=== PATIENT | male | born 1965 | race African-American/Black ===

== ENCOUNTER 2022-12-17 05:58 | Emergency (ER) | payer OTHER ==
--- OUTSIDE RECORDS SUMMARY | 2022-12-17 06:01 | XMS REPORT | Continuity of Care Document ---
:1965 Author Organization [facility] t Address [address] [facility] [address] [place] [id number] Care Team Providers Name Role Phone Katty_S Attending Clinician Unavailable Chano Alaniz Attending Clinician [phone] Borisin_S Admitting Clinician Unavailable Payers Payer Name Policy Type Policy Number Effective Date Expiration Date [facility] [id number] [facility] [id number] 2011 00:00:00 [facility] [id number] 2019 00:00:00 Problems Condition Condition Condition Status Onset Resolution Last Treating Co mments Source Name Details Category Date Date Treatment Clinician Date Benign Benign Problem Active [place] prostatic Prostatic 1-10 [facility] o hyperplasi Hyperplasi 00:00: Ur ology a a 00 Prostate Prostate Problem Active [place] specific Specific 1-10 [facility] antigen Antigen 00:00: Urology above above 00 reference Reference range Range Hypogonadi Hypogonadi Problem Active [place] sm sm 1-07 [facility] 00:00: Urology 00 Allergies, Adverse Reactions, Alerts This patient has no known allergies or adverse reactions. Social History Smoking Status Start Date Stop Date Source Never Smoker [facility] Medications Ordered Filled Start Stop Current Ordering Indication Dosage Frequency Signature Comments Components Source Medication Medication Date Date Medication? Clinician (SIG) Name Name anastrozole anastrozole No anastrozol [facility] 1 mg tablet 1 mg tablet e 1 mg [facility] TAKE 1 TAKE 1 tablet Urology TABLET BY TABLET BY TAKE 1 MOUTH ONE MOUTH ONE TABLET BY TIME PER TIME PER MOUTH ONE WEEK WEEK TIME PER WEEK carvedilol carvedilol No carvedilol [place] 12.5 mg 12.5 mg 12.5 mg [facility] tablet TAKE tablet TAKE tablet Urology 1 TABLET BY 1 TABLET BY TAKE 1 MOUTH EVERY MOUTH EVERY TABLET BY DAY DAY MOUTH EVERY DAY diltiazem diltiazem No diltiazem [place] ER 300 mg ER 300 mg ER 300 mg [facility] capsule,24 capsule,24 capsule,24 Urology hr,extended hr,extended hr,extende release release d release TAKE 1 TAKE 1 TAKE 1 CAPSULE BY CAPSULE BY CAPSULE BY MOUTH EVERY MOUTH EVERY MOUTH DAY DAY EVERY DAY fenofibrate fenofibrate No fenofibrat [facility] 54 mg 54 mg e 54 mg [facility] tablet TAKE tablet TAKE tablet Urology 1 TABLET BY 1 TABLET BY TAKE 1 MOUTH EVERY MOUTH EVERY TABLET BY DAY DAY MOUTH EVERY DAY meloxicam meloxicam No meloxicam [facility] 15 mg 15 mg 15 mg [facility] tablet TAKE tablet TAKE tablet Urology 1 TABLET BY 1 TABLET BY TAKE 1 MOUTH EVERY MOUTH EVERY TABLET BY DAY START DAY START MOUTH AFTER AFTER EVERY DAY MEDROL DOSE MEDROL DOSE START PACK PACK AFTER MEDROL DOSE PACK rosuvastati rosuvastati No rosuvastat [place] n 10 mg n 10 mg in 10 mg [facility] tablet TAKE tablet TAKE tablet Urology 1 TABLET BY 1 TABLET BY TAKE 1 MOUTH EVERY MOUTH EVERY TABLET BY DAY DAY MOUTH EVERY DAY testosteron testosteron No .5mL Q1W testostero [place] e cypionate e cypionate ne M etro 200 mg/mL 200 mg/mL cypionate Urology intramuscul intramuscul 200 mg/mL ar oil ar oil intramuscu Inject 0.5 Inject 0.5 lar oil mL every mL every Inject 0.5 week by week by mL every intramuscul intramuscul week by ar route. ar route. intramuscu lar route. anastrozole anastrozole No 1 Q1W anastrozol [facility] 1 mg tablet 1 mg tablet e 1 mg [facility] Take 1 Take 1 tablet Urology tablet tablet Take 1 every week every week tablet by oral by oral every week route. route. by oral route. carvedilol carvedilol No carvedilol [facility] 12.5 mg 12.5 mg 12.5 mg [facility] tablet tablet tablet Urology diltiazem diltiazem No diltiazem [place] ER 300 mg ER 300 mg ER 300 mg [facility] capsule,24 capsule,24 capsule,24 Urology hr,extended hr,extended hr,extende release release d release fenofibrate fenofibrate No fenofibrat [place] 54 mg 54 mg e 54 mg [facility] tablet tablet tablet Urology testosteron testosteron No .5mL Q1W testostero Resendez e cypionate e cypionate ne M etro 200 mg/mL 200 mg/mL cypionate Urology intramuscul intramuscul 200 mg/mL ar oil ar oil intramuscu Inject 0.5 Inject 0.5 lar oil mL every mL every Inject 0.5 week by week by mL every intramuscul intramuscul week by ar route. ar route. intramuscu lar route. anastrozole anastrozole No anastrozol [facility] 1 mg tablet 1 mg tablet e 1 mg [facility] TAKE 1 TAKE 1 tablet Urology TABLET BY TABLET BY TAKE 1 MOUTH EVERY MOUTH EVERY TABLET BY WEEK WEEK MOUTH EVERY WEEK carvedilol carvedilol No carvedilol [facility] 12.5 mg 12.5 mg 12.5 mg [facility] tablet TAKE tablet TAKE tablet Urology 1 TABLET BY 1 TABLET BY TAKE 1 MOUTH EVERY MOUTH EVERY TABLET BY DAY IN THE DAY IN THE MOUTH MORNING MORNING EVERY DAY IN THE MORNING diltiazem diltiazem No diltiazem [place] ER 300 mg ER 300 mg ER 300 mg [facility] capsule,24 capsule,24 capsule,24 Urology hr,extended hr,extended hr,extende release release d release TAKE 1 TAKE 1 TAKE 1 CAPSULE BY CAPSULE BY CAPSULE BY MOUTH EVERY MOUTH EVERY MOUTH DAY DAY EVERY DAY fenofibrate fenofibrate No fenofibrat [facility] 54 mg 54 mg e 54 mg [facility] tablet TAKE tablet TAKE tablet Urology 1 TABLET BY 1 TABLET BY TAKE 1 MOUTH EVERY MOUTH EVERY TABLET BY DAY DAY MOUTH EVERY DAY testosteron testosteron No .5mL Q1W testostero Mal e cypionate e cypionate ne M etro 200 mg/mL 200 mg/mL cypionate Urology intramuscul intramuscul 200 mg/mL ar oil ar oil intramuscu Inject 0.5 Inject 0.5 lar oil mL every mL every Inject 0.5 week by week by mL every intramuscul intramuscul week by ar route. ar route. intramuscu lar route. anastrozole anastrozole No anastrozol [facility] 1 mg tablet 1 mg tablet e 1 mg [facility] TAKE 1 TAKE 1 tablet Urology TABLET BY TABLET BY TAKE 1 MOUTH ONE MOUTH ONE TABLET BY TIME PER TIME PER MOUTH ONE WEEK WEEK TIME PER WEEK benzonatate benzonatate No benzonatat [facility] 100 mg 100 mg e 100 mg [facility] capsule capsule capsule Urolog y TAKE 1-2 TAKE 1-2 TAKE 1-2 CAPSULES CAPSULES CAPSULES EVERY BY EVERY BY EVERY BY MOUTH 8 MOUTH 8 MOUTH 8 HOURS HOURS HOURS DIRECTED. DIRECTED. DIRECTED. bromphenira bromphenira No bromphenir [place] mine-pseudo mine-pseudo amine-pseu [facility] ephedrine-D ephedrine-D doephedrin Urology M 2 mg-30 M 2 mg-30 e-DM 2 mg-10 mg/5 mg-10 mg/5 mg-30 mL oral mL oral mg-10 mg/5 syrup TAKE syrup TAKE mL oral 10 ML BY 10 ML BY syrup TAKE MOUTH EVERY MOUTH EVERY 10 ML BY 4 HOURS 4 HOURS MOUTH NEEDED NEEDED EVERY 4 HOURS NEEDED carvedilol carvedilol No carvedilol [place] 12.5 mg 12.5 mg 12.5 mg [facility] tablet TAKE tablet TAKE tablet Urology 1 TABLET BY 1 TABLET BY TAKE 1 MOUTH EVERY MOUTH EVERY TABLET BY DAY DAY MOUTH EVERY DAY diltiazem diltiazem No diltiazem [place] ER 300 mg ER 300 mg ER 300 mg [facility] capsule,24 capsule,24 capsule,24 Urology hr,extended hr,extended hr,extende release release d release TAKE 1 TAKE 1 TAKE 1 CAPSULE BY CAPSULE BY CAPSULE BY MOUTH EVERY MOUTH EVERY MOUTH DAY DAY EVERY DAY fenofibrate fenofibrate No fenofibrat [place] 54 mg 54 mg e 54 mg [facility] tablet TAKE tablet TAKE tablet Urology 1 TABLET BY 1 TABLET BY TAKE 1 MOUTH EVERY MOUTH EVERY TABLET BY DAY DAY MOUTH EVERY DAY hydrocodone hydrocodone No hydrocodon [facility] 7.5 7.5 e 7.5 [facility] mg-acetamin mg-acetamin mg-acetami Urology ophen 325 ophen 325 nophen 325 mg tablet mg tablet mg tablet ibuprofen ibuprofen No ibuprofen [facility] 800 mg 800 mg 800 mg [facility] tablet tablet tablet Urology rosuvastati rosuvastati No rosuvastat [place] n 10 mg n 10 mg in 10 mg [facility] tablet TAKE tablet TAKE tablet Urology 1 TABLET BY 1 TABLET BY TAKE 1 MOUTH EVERY MOUTH EVERY TABLET BY DAY DAY MOUTH EVERY DAY testosteron testosteron No .5mL Q1W testostero [place] e cypionate e cypionate ne M etro 200 mg/mL 200 mg/mL cypionate Urology intramuscul intramuscul 200 mg/mL ar oil ar oil intramuscu Inject 0.5 Inject 0.5 lar oil mL every mL every Inject 0.5 week by week by mL every intramuscul intramuscul week by ar route. ar route. intramuscu lar route. Immunizations Ordered Immunization Filled Immunization Date Status Commen ts Source Name Name COVID-19, mRNA, COVID-19, mRNA, 2020-07-05 Completed [place] [facility] LNP-S, PF, 100 LNP-S, PF, 100 00:00:00 Urolog y mcg/0.5 mL dose mcg/0.5 mL dose (Moderna) (Moderna) COVID-19, mRNA, COVID-19, mRNA, 2020-07-05 Completed [place] [facility] LNP-S, PF, 100 LNP-S, PF, 100 00:00:00 Urolog y mcg/0.5 mL dose mcg/0.5 mL dose (Moderna) (Moderna) COVID-19, mRNA, COVID-19, mRNA, 2020-07-05 Completed [place] [facility] LNP-S, PF, 100 LNP-S, PF, 100 00:00:00 Urolog y mcg/0.5 mL dose mcg/0.5 mL dose (Moderna) (Moderna) COVID-19, mRNA, COVID-19, mRNA, 2020-07-05 Completed [place] [facility] LNP-S, PF, 100 LNP-S, PF, 100 00:00:00 Urolog y mcg/0.5 mL dose mcg/0.5 mL dose (Moderna) (Moderna) COVID-19, mRNA, COVID-19, mRNA, 2020-06-07 Completed [place] [facility] LNP-S, PF, 100 LNP-S, PF, 100 00:00:00 Urolog y mcg/0.5 mL dose mcg/0.5 mL dose (Moderna) (Moderna) COVID-19, mRNA, COVID-19, mRNA, 2020-06-07 Completed [place] [facility] LNP-S, PF, 100 LNP-S, PF, 100 00:00:00 Urolog y mcg/0.5 mL dose mcg/0.5 mL dose (Moderna) (Moderna) COVID-19, mRNA, COVID-19, mRNA, 2020-06-07 Completed [place] [facility] LNP-S, PF, 100 LNP-S, PF, 100 00:00:00 Urolog y mcg/0.5 mL dose mcg/0.5 mL dose (Moderna) (Moderna) COVID-19, mRNA, COVID-19, mRNA, 2020-06-07 Completed [place] [facility] LNP-S, PF, 100 LNP-S, PF, 100 00:00:00 Urolog y mcg/0.5 mL dose mcg/0.5 mL dose (Moderna) (Moderna) Vital Signs Vital Name Observation Time Observation Value Comments Source Height 2022-10-17 00:00:00 66 [in_i] [facility] BMI (Body Mass 2022-10-17 00:00:00 30.2 kg/m2 [place] [facility] Index) Urology Body Weight 2022-10-17 00:00:00 187 [lb_av] [facility] Height 2022-04-18 00:00:00 66 [in_i] [facility] BMI (Body Mass 2022-04-18 00:00:00 30 kg/m2 [place] [facility] Index) Urology Body Weight 2022-04-18 00:00:00 186 [lb_av] [facility] Height 2021-10-15 00:00:00 66 [in_i] [facility] BMI (Body Mass 2021-10-15 00:00:00 30.2 kg/m2 [place] [facility] Index) Urology Body Weight 2021-10-15 00:00:00 187 [lb_av] [facility] Height 2021-04-16 00:00:00 66 [in_i] [facility] BMI (Body Mass 2021-04-16 00:00:00 30.5 kg/m2 [place] [facility] Index) Urology Body Weight 2021-04-16 00:00:00 189 [lb_av] [facility] Procedures Procedure Date / Time Performed Performing Clinician [facility] e Diagnostic Colonoscopy 2018-04-07 00:00:00 [place] [facility] Plan of Care Planned Activity Planned Date Details Comments Source Diagnostic Test 2022-10-17 testosterone, total, [place] [facility] Pending 00:00:00 serum [code = Urology testosterone, total, serum] Diagnostic Test 2022-10-17 estradiol, serum [place] [facility] Pending 00:00:00 [code = estradiol, Urology serum] Diagnostic Test 2022-10-17 PSA, total + free, [place] [facility] Pending 00:00:00 serum or plasma Urology [code = PSA, total + free, serum or plasma] Diagnostic Test 2022-10-17 hemoglobin + [place] [facility] o Pending 00:00:00 hematocrit, blood Urology [code = hemoglobin + hematocrit, blood] Diagnostic Test 2022-10-17 urinalysis, dipstick [place] [facility] Pending 00:00:00 [code = urinalysis, Urology dipstick] Future Appointment 2023-04-19 Chano Alaniz, [address] [facility] 00:00:[address]; , [place] [address] Encounters Start End Encounter Admission Attending Care Care Encounter Source Date/Time Date/Time Type Type Clinicians Facility Department ID 2022-10-17 2022-10-17 Outpatient Lapin_S [facility] [id number] [place] 00:00:00 00:00:00 [id number] [facility] 2022-10-17 2022-10-17 Outpatient Lapin_S [facility] [id number] [place] 00:00:00 00:00:00 [id number] [facility] 2022-10-17 2022-10-17 Chano [facility] [place] - [id number] Chris gonzales 00:00:00 00:00:00 Savanna Alaniz MD: ro [facility] [address] Urology [place] [facility] [address] [facility], [place] [address] , Ph. 2022-04-18 2022-04-18 Outpatient [facility] [id number] [place] 00:00:00 00:00:00 [id number] [facility] 2022-04-18 2022-04-18 Outpatient Lapin_S [facility] [id number] [place] 00:00:00 00:00:00 [id number] [facility] 2022-04-18 2022-04-18 [facility] [place] - [id number] [facility] 00:00:00 Savanna Alaniz MD: [facility] [facility] [address], [place] [address] , Ph. 2021-10-30 2021-10-30 Outpatient Lapin_S [facility] [id number] [place] 12:54:00 12:54:00 [facility] 2021-10-16 2021-10-16 Outpatient Lapin_S [facility] [id number] [place] 10:02:00 10:02:00 [facility] 2021-10-15 2021-10-15 Outpatient Lapin_S [facility] [id number] [place] 11:26:00 11:26:00 [id number] [facility] 2021-10-15 2021-10-15 Outpatient Lapin, [facility] [id number] 00:00:00 00:00:00 Chano [id number] Savanna [id number] 2021-10-15 2021-10-15 [facility] [place] - [id number] [facility] 00:00:00 00:00:00 Savanna Alaniz MD: [facility] [facility] [address], [place] [address] , Ph. 2021-09-10 2021-09-10 Outpatient Lapin_S [facility] U [id number] [place] 04:53:00 04:53:00 [facility] 2021-04-16 2021-04-16 Outpatient Lapin_S [facility] [id number] [place] 11:16:00 11:16:00 [facility] 2021-04-16 2021-04-16 Chano [facility] [place] [facility] [id number] [facility] 00:00:00 Savanna Alaniz MD: [facility] [facility] [address], [place] [address] , Ph. 2021-04-16 2021-04-16 Outpatient Lapin, [facility] [id number] 00:00:00 00:00:00 Chano [id number] Savanna [id number] 2021-04-10 2021-04-10 Outpatient Lapin_S [facility] [id number] [place] 11:59:00 11:59:00 [facility] 2021-03-26 2021-03-26 Outpatient Lapin_S [facility] [id number] [place] 05:53:00 05:53:00 [id number] [facility] Results This patient has no known results.
[2022-12-17 06:54] LABS: Absolute Lymphocytes (CBC) 1.2 K/uL (0.7-4.9); Lymphocytes % 20.4 % (15.3-44.8); MCV 83.4 fL (80-100); MPV 8.1 fL (7.6-11.3); Platelets 249 thou/uL (152-406); RBC Red Blood Cell Count 5.03 M/uL (4.33-5.43)
--- NOTE | 2022-12-17 07:02 | ER ---
Nurse's Notes [facility] Name: Watson Martines Age: 57 yrs Sex: Male : 1965 Arrival Date: 12/17/2022 Time: 05:58 Bed 6 Private MD: Diagnosis: Acute urinary retention, bladder outlet obstruction, prostatomegaly Presentation: 12/17 06:13 Chief complaint: Patient states: "I haven't been able to pee since 9 am yesterday as6 morning". Coronavirus screen: At this time, the client does not indicate any symptoms associated with coronavirus-19. Ebola Screen: No symptoms or risks identified at this time. Initial Sepsis Screen: Does the patient meet any 2 criteria? No. Patient's initial sepsis screen is negative. Does the patient have a suspected source of infection? No. Patient's initial sepsis screen is negative. Risk Assessment: Do you want to hurt yourself or someone else? Patient reports no desire to harm self or others. Onset of symptoms was December 16, 2022 at 09:00. 06:13 Method Of Arrival: Wheelchair as6 06:13 Acuity: VALERIA 3 as6 Historical: - Allergies: 06:13 No Known Allergies; as6 - Home Meds: 06:13 None [Active]; as6 - PMHx: 06:13 None; as6 - PSHx: 06:13 elbow; as6 - Immunization history:: Client reports receiving the 2nd dose of the Covid vaccine, moderna. - Social history:: Smoking status: Patient denies any tobacco usage or history of. - Family history:: not pertinent. Vital Signs: 06:10 BP 159 / 100; Pulse 92; Resp 18 S; Temp 97.9(TE); Pulse Ox 100% on R/A; Weight 86.18 kg as6 (R); Height 5 ft. 6 in. (R); Pain 10/10; 06:10 Body Mass Index 30.67 (86.18 kg, 167.64 cm) as6 06:10 Pain Scale: Adult as6 ED Course: 06:01 Patient arrived in ED. ag3 06:06 Roberto Gonzalez MD is Attending Physician. sp4 06:08 Otis Duran, FELIPE is Primary Nurse. bp 06:10 Arm band placed on. as6 06:16 Triage completed. as6 06:49 CMP Sent. jb4 06:49 Urinalysis W/Microscopic Sent. jb4 06:50 CBC with Diff Sent. jb4 06:58 Glen Ruth MD is Referral Physician. sp4 Administered Medications: 06:53 Not Given (Patient Refused): Acetaminophen-Codeine PO (300 mg-30 mg) 2 tabs PO once; jb4 RASS on ADMIN: Combtv4, Very Agttd3, Agttd2, Rstlss1, AlertClm0, Drwsy-1, Lt Sdtn-2, Mod Sdtn-3, Dp Sdtn-4, UnArsble-5 06:57 Drug: Flomax PO 0.4 mg Route: PO; jb4 Outcome: 07:01 Discharge ordered by . sp4 07:51 Patient left the ED. Signatures: Dawna Magaña RN RN Maynor Lawton RN RN jb4 Otis Duran, RN Venita Coleman ag3 Wayne Suh, FELIPE WANG as6 Roberto Gonzalez MD MD sp4
--- NOTE | 2022-12-17 07:02 | EDPHYS ---
Physician Documentation [facility] Name: Watson Martines Age: 57 yrs Sex: Male : 1965 Arrival Date: 12/17/2022 Time: 05:58 Bed 6 Private MD: ED Physician Roberto Gonzalez HPI: 12/17 06:06 This 57 yrs old Black Male presents to ER via Unassigned with complaints of Urinary sp4 Retention. 06:06 . sp4 06:36 57-year-old male presents with acute urinary outflow obstruction and urinary retention sp4 starting at 9 AM yesterday morning. Patient reported sporadic small-volume urinations but this morning he developed moderate to severe pelvic pain, urinary bladder distention and presented here. Patient denied any similar symptoms in the past. [facility] and prescribed Pyridium and Macrobid.. Historical: - Allergies: 06:13 No Known Allergies; as6 - Home Meds: 06:13 None [Active]; as6 - PMHx: 06:13 None; as6 - PSHx: 06:13 elbow; as6 - Immunization history:: Client reports receiving the 2nd dose of the Covid vaccine, moderna. - Social history:: Smoking status: Patient denies any tobacco usage or history of. - Family history:: not pertinent. ROS: 06:36 Constitutional: Negative for fever, chills, and weight loss, Eyes: Negative for injury, sp4 pain, redness, and discharge, : Positive urinary bladder pain, urinary bladder distention, positive acute urinary retention 06:36 All other systems are negative. Exam: 06:36 Constitutional: This is a well developed, well nourished patient who is awake, alert, sp4 mild distress secondary to pain Head/Face: Normocephalic, atraumatic. Eyes: Pupils equal round and reactive to light, extra-ocular motions intact. Lids and lashes normal. Conjunctiva and sclera are not injected. Cornea within normal limits. Periorbital areas with no swelling, redness, or edema. ENT: Nares patent. No nasal discharge, no septal abnormalities noted. Tympanic membranes are normal and external auditory canals are clear. Oropharynx with no redness, swelling, or masses, exudates, or evidence of obstruction, uvula midline. Mucous membranes moist. Neck: Trachea midline, no thyromegaly or masses palpated, and no cervical lymphadenopathy. Supple, full range of motion without nuchal rigidity, or vertebral point tenderness. Chest/axilla: Normal chest wall appearance and motion. Nontender with no deformity. No lesions are appreciated. Cardiovascular: Regular rate and rhythm with a normal S1 and S2. No gallops, murmurs, or rubs. Normal PMI, no JVD. No pulse deficits. Respiratory: Lungs have equal breath sounds bilaterally, clear to auscultation and percussion. No rales, rhonchi or wheezes noted. No increased work of breathing, no retractions or nasal flaring. Abdomen/GI: Soft, non-tender, with normal bowel sounds. No distension or tympany. No guarding or rebound. No evidence of tenderness throughout. Back: No spinal tenderness. No costovertebral tenderness. Skin: Warm, dry with normal turgor. Normal color with no rashes, no lesions, and no evidence of cellulitis. MS/ Extremity: Pulses equal, no cyanosis. Neurovascular intact. Full, normal range of motion. Neuro: Awake and alert, GCS 15, oriented to person, place, time, and situation. Cranial nerves II-XII grossly intact. Motor strength 5/5 in all extremities. Sensory grossly intact. Psych: Awake, alert, with orientation to person, place and time. Behavior, mood, and affect are within normal limits Vital Signs: 06:10 BP 159 / 100; Pulse 92; Resp 18 S; Temp 97.9(TE); Pulse Ox 100% on R/A; Weight 86.18 kg as6 (R); Height 5 ft. 6 in. (R); Pain 10/10; 06:10 Body Mass Index 30.67 (86.18 kg, 167.64 cm) as6 06:10 Pain Scale: Adult as6 Procedures: 06:36 Rodriguez cath inserted by myself - Urine output = 1200 ml's. Rodriguez cath flushed with 10 ml sp4 normal saline. Patient tolerated well. Rodriguez catheter inserted by drained 1.2 L, Rodriguez catheter left in place and leg bag was attached. MDM: 06:31 Patient medically screened. sp4 06:36 Differential Diagnosis altered mental status, sepsis, flu. Data reviewed: vital signs, sp4 nurses notes, lab test result(s). Consideration of Admission/Observation Escalation of care including admission/observation considered. ED course: Patient felt much improved after the urinary bladder was drained.. . 12/17 06:07 Order name: Urinalysis W/Microscopic sp4 12/17 06:27 Order name: CMP sp4 12/17 06:27 Order name: CBC with Diff; Complete Time: 06:58 sp4 12/17 06:07 Order name: Rodriguez; Complete Time: 06:49 sp4 Administered Medications: 06:53 Not Given (Patient Refused): Acetaminophen-Codeine PO (300 mg-30 mg) 2 tabs PO once; jb4 RASS on ADMIN: Combtv4, Very Agttd3, Agttd2, Rstlss1, AlertClm0, Drwsy-1, Lt Sdtn-2, Mod Sdtn-3, Dp Sdtn-4, UnArsble-5 06:57 Drug: Flomax PO 0.4 mg Route: PO; jb4 Disposition Summary: 12/17/22 07:01 Discharge Ordered Location: Home sp4 Problem: new sp4 Symptoms: have improved sp4 Condition: Stable sp4 Diagnosis - Acute urinary retention, bladder outlet obstruction, prostatomegaly sp4 Followup: sp4 - With: Glen Ruth MD - When: 10 - 14 days - Reason: Recheck today's complaints Discharge Instructions: - Discharge Summary Sheet sp4 - Acute Urinary Retention, Male, [id number] sp4 Forms: - Patient Portal Instructions sp4 Prescriptions: - Flomax 0.4 mg Oral capsule - take 1 capsule by ORAL route daily; 30 capsule; Refills: 0, Product Selection sp4 Permitted Signatures: Dispatcher [employer] Maynor Almonte RN RN jb4 Wayne Suh RN RN as6 Roberto Gonzalez MD MD sp4
[2022-12-17] MEDS ORDERED: TAMSULOSIN 0.4 MG SR CAP ONE (07:05)
[2022-12-17 07:10] LABS: Albumin 3.7 g/dL (3.4-5.0); Bilirubin Total 0.4 mg/dL (0.2-1.0); Potassium 3.5 mEq/L (3.5-5.1); Protein, Total 7.4 g/dL (6.4-8.2)
[2022-12-17 07:28] LABS: Specific Gravity 1.023 (1.005-1.030); Urine Bacteria <20 /HPF (<20); Urine Bilirubin 1+ (Negative); Urine Blood 3+ (Negative); Urine Clarity Turbid (Clear); Urine Color Dark-Yellow (Yellow); Urine Glucose NEGATIVE (Negative); Urine Mucus Slight /HPF (None Seen); Urine Protein NEGATIVE (Negative); Urine RBC >50 /HPF (None Seen); Urine Urobilinogen 1+ (Normal); Urine pH 6.5 (5.0-7.0)
[2022-12-17 07:55] VITALS: BP 159/100; TEMP 97.9; O2SAT 100
== END 2022-12-17 07:51 | disposition home or self-care (01) ==
LOC: ER 05:58
DX: N32.0 Bladder-neck obstruction (principal); N40.0 Benign prostatic hyperplasia without lower urinary tract symptoms
CPT/HCPCS: 36415; 51702; 80053; 81001; 85025; 99283

== ENCOUNTER 2023-07-14 09:01 | Emergency (ER) | payer OTHER ==
--- OUTSIDE RECORDS SUMMARY | 2023-07-14 09:05 | XMS REPORT | Continuity of Care Document ---
Author Name Unknown Address [address] [place] [address] [address] [place] [address] [facility] Address [address] [facility] [address] [place] [address] Care Team Providers Care Timber Hewer Name Role Phone Thompson Attending Clinician Unavailable Chano Alaniz Attending Clinician [phone] Thompson Admitting Clinician Unavailable Payers Payer Name Policy Type Policy Number Effective Date Expirati on Date Source [facility] [id number] [facility] [id number] 2011 00:00:00 [facility] [id number] [facility] [id number] 2019 00:00:00 Problems Condition Name Condition Details Condition Category Status Onset Date Resolution Date Last Treatment Date Treating Clinician Comments Source Retention of urine Retention of Urine Problem Active 12-17 00:00: 00 [facility] Benign prostatic hyperplasi a Benign Prostatic Hyperplasi a Problem Active 04-16 00:00: 00 [facility] Prostate specific antigen above reference range Prostate Specific Antigen above Reference Range Problem Active 04-16 00:00: 00 [facility] Hypogonadi sm Hypogonadi sm Problem Active 04-13 00:00: 00 [facility] Social History Smoking Status Start Date Stop Date Source Never Smoker [facility] Medications Ordered Medication Name Filled Medication Name Start Date Stop Date Current Medication? Ordering Clinician Indication Dosage Frequency Signature (SIG) Comments Components Source anastrozole 1 mg tablet TAKE 1 TABLET BY MOUTH ONE TIME PER WEEK anastrozole 1 mg tablet TAKE 1 TABLET BY MOUTH ONE TIME PER WEEK No anastrozol e 1 mg tablet TAKE 1 TABLET BY MOUTH ONE TIME PER WEEK [facility] carvedilol 12.5 mg tablet TAKE 1 TABLET BY MOUTH EVERY DAY carvedilol 12.5 mg tablet TAKE 1 TABLET BY MOUTH EVERY DAY No carvedilol 12.5 mg tablet TAKE 1 TABLET BY MOUTH EVERY DAY [facility] diltiazem ER 300 mg capsule,24 hr,extended release TAKE 1 CAPSULE BY MOUTH EVERY DAY diltiazem ER 300 mg capsule,24 hr,extended release TAKE 1 CAPSULE BY MOUTH EVERY DAY No diltiazem ER 300 mg capsule,24 hr,extende d release TAKE 1 CAPSULE BY MOUTH EVERY DAY [facility] fenofibrate 54 mg tablet TAKE 1 TABLET BY MOUTH EVERY DAY fenofibrate 54 mg tablet TAKE 1 TABLET BY MOUTH EVERY DAY No fenofibrat e 54 mg tablet TAKE 1 TABLET BY MOUTH EVERY DAY [facility] meloxicam 15 mg tablet TAKE 1 TABLET BY MOUTH EVERY DAY START AFTER MEDROL DOSE PACK meloxicam 15 mg tablet TAKE 1 TABLET BY MOUTH EVERY DAY START AFTER MEDROL DOSE PACK No meloxicam 15 mg tablet TAKE 1 TABLET BY MOUTH EVERY DAY START AFTER MEDROL DOSE PACK [facility] rosuvastati n 10 mg tablet TAKE 1 TABLET BY MOUTH EVERY DAY rosuvastati n 10 mg tablet TAKE 1 TABLET BY MOUTH EVERY DAY No rosuvastat in 10 mg tablet TAKE 1 TABLET BY MOUTH EVERY DAY [facility] testosteron e cypionate 200 mg/mL intramuscul ar oil Inject 0.5 mL every week by intramuscul ar route. testosteron e cypionate 200 mg/mL intramuscul ar oil Inject 0.5 mL every week by intramuscul ar route. No .5mL Q1W testostero ne cypionate 200 mg/mL intramuscu lar oil Inject 0.5 mL every week by intramuscu lar route. [facility] alfuzosin ER 10 mg tablet,exte nded release 24 hr Take 1 tablet every day by oral route for 90 days. alfuzosin ER 10 mg tablet,exte nded release 24 hr Take 1 tablet every day by oral route for 90 days. No 1 Q1D alfuzosin ER 10 mg tablet,ext ended release 24 hr Take 1 tablet every day by oral route for 90 days. [facility] anastrozole 1 mg tablet TAKE 1 TABLET BY MOUTH ONE TIME PER WEEK anastrozole 1 mg tablet TAKE 1 TABLET BY MOUTH ONE TIME PER WEEK No anastrozol e 1 mg tablet TAKE 1 TABLET BY MOUTH ONE TIME PER WEEK [facility] carvedilol 12.5 mg tablet TAKE 1 TABLET BY MOUTH EVERY DAY carvedilol 12.5 mg tablet TAKE 1 TABLET BY MOUTH EVERY DAY No carvedilol 12.5 mg tablet TAKE 1 TABLET BY MOUTH EVERY DAY [facility] diltiazem ER 180 mg capsule,24 hr,extended release TAKE 1 CAPSULE BY MOUTH EVERY DAY diltiazem ER 180 mg capsule,24 hr,extended release TAKE 1 CAPSULE BY MOUTH EVERY DAY No diltiazem ER 180 mg capsule,24 hr,extende d release TAKE 1 CAPSULE BY MOUTH EVERY DAY [facility] diltiazem ER 300 mg capsule,24 hr,extended release TAKE 1 CAPSULE BY MOUTH EVERY DAY diltiazem ER 300 mg capsule,24 hr,extended release TAKE 1 CAPSULE BY MOUTH EVERY DAY No diltiazem ER 300 mg capsule,24 hr,extende d release TAKE 1 CAPSULE BY MOUTH EVERY DAY [facility] fenofibrate 54 mg tablet TAKE 1 TABLET BY MOUTH EVERY DAY fenofibrate 54 mg tablet TAKE 1 TABLET BY MOUTH EVERY DAY No fenofibrat e 54 mg tablet TAKE 1 TABLET BY MOUTH EVERY DAY [facility] meloxicam 15 mg tablet TAKE 1 TABLET BY MOUTH EVERY DAY START AFTER MEDROL DOSE PACK meloxicam 15 mg tablet TAKE 1 TABLET BY MOUTH EVERY DAY START AFTER MEDROL DOSE PACK No meloxicam 15 mg tablet TAKE 1 TABLET BY MOUTH EVERY DAY START AFTER MEDROL DOSE PACK [facility] nitrofurant oin macrocrysta l 100 mg capsule TAKE 1 CAPSULE BY MOUTH EVERY 12 HOURS nitrofurant oin macrocrysta l 100 mg capsule TAKE 1 CAPSULE BY MOUTH EVERY 12 HOURS No nitrofuran toin macrocryst al 100 mg capsule TAKE 1 CAPSULE BY MOUTH EVERY 12 HOURS [facility] phenazopyri dine 200 mg tablet TAKE 1 TABLET EVERY 8 HOURS NEEDED phenazopyri dine 200 mg tablet TAKE 1 TABLET EVERY 8 HOURS NEEDED No phenazopyr idine 200 mg tablet TAKE 1 TABLET EVERY 8 HOURS NEEDED [facility] rosuvastati n 10 mg tablet TAKE 1 TABLET BY MOUTH EVERY DAY rosuvastati n 10 mg tablet TAKE 1 TABLET BY MOUTH EVERY DAY No rosuvastat in 10 mg tablet TAKE 1 TABLET BY MOUTH EVERY DAY [facility] tamsulosin 0.4 mg capsule TAKE 1 CAPSULE BY MOUTH EVERY DAY tamsulosin 0.4 mg capsule TAKE 1 CAPSULE BY MOUTH EVERY DAY No tamsulosin 0.4 mg capsule TAKE 1 CAPSULE BY MOUTH EVERY DAY [facility] testosteron e cypionate 200 mg/mL intramuscul ar oil INJECT 0.5 ML INTRAMUSCUL HAYDEN WEEKLY testosteron e cypionate 200 mg/mL intramuscul ar oil INJECT 0.5 ML INTRAMUSCUL HAYDEN WEEKLY No testostero ne cypionate 200 mg/mL intramuscu lar oil INJECT 0.5 ML INTRAMUSCU LARLY WEEKLY [facility] alfuzosin ER 10 mg tablet,exte nded release 24 hr TAKE 1 TABLET BY MOUTH EVERY DAY alfuzosin ER 10 mg tablet,exte nded release 24 hr TAKE 1 TABLET BY MOUTH EVERY DAY No alfuzosin ER 10 mg tablet,ext ended release 24 hr TAKE 1 TABLET BY MOUTH EVERY DAY [facility] anastrozole 1 mg tablet TAKE 1 TABLET BY MOUTH ONE TIME PER WEEK anastrozole 1 mg tablet TAKE 1 TABLET BY MOUTH ONE TIME PER WEEK No anastrozol e 1 mg tablet TAKE 1 TABLET BY MOUTH ONE TIME PER WEEK [facility] carvedilol 12.5 mg tablet TAKE 1 TABLET BY MOUTH EVERY DAY carvedilol 12.5 mg tablet TAKE 1 TABLET BY MOUTH EVERY DAY No carvedilol 12.5 mg tablet TAKE 1 TABLET BY MOUTH EVERY DAY [facility] diltiazem ER 180 mg capsule,24 hr,extended release TAKE 1 CAPSULE BY MOUTH EVERY DAY diltiazem ER 180 mg capsule,24 hr,extended release TAKE 1 CAPSULE BY MOUTH EVERY DAY No diltiazem ER 180 mg capsule,24 hr,extende d release TAKE 1 CAPSULE BY MOUTH EVERY DAY [facility] fenofibrate 54 mg tablet TAKE 1 TABLET BY MOUTH EVERY DAY fenofibrate 54 mg tablet TAKE 1 TABLET BY MOUTH EVERY DAY No fenofibrat e 54 mg tablet TAKE 1 TABLET BY MOUTH EVERY DAY [facility] nitrofurant oin macrocrysta l 100 mg capsule TAKE 1 CAPSULE BY MOUTH EVERY 12 HOURS nitrofurant oin macrocrysta l 100 mg capsule TAKE 1 CAPSULE BY MOUTH EVERY 12 HOURS No nitrofuran toin macrocryst al 100 mg capsule TAKE 1 CAPSULE BY MOUTH EVERY 12 HOURS [facility] phenazopyri dine 200 mg tablet TAKE 1 TABLET EVERY 8 HOURS NEEDED phenazopyri dine 200 mg tablet TAKE 1 TABLET EVERY 8 HOURS NEEDED No phenazopyr idine 200 mg tablet TAKE 1 TABLET EVERY 8 HOURS NEEDED [facility] rosuvastati n 10 mg tablet TAKE 1 TABLET BY MOUTH EVERY DAY rosuvastati n 10 mg tablet TAKE 1 TABLET BY MOUTH EVERY DAY No rosuvastat in 10 mg tablet TAKE 1 TABLET BY MOUTH EVERY DAY [facility] tamsulosin 0.4 mg capsule TAKE 1 CAPSULE BY MOUTH EVERY DAY tamsulosin 0.4 mg capsule TAKE 1 CAPSULE BY MOUTH EVERY DAY No tamsulosin 0.4 mg capsule TAKE 1 CAPSULE BY MOUTH EVERY DAY [facility] testosteron e cypionate 200 mg/mL intramuscul ar oil INJECT 0.5 ML INTRAMUSCUL HAYDEN WEEKLY testosteron e cypionate 200 mg/mL intramuscul ar oil INJECT 0.5 ML INTRAMUSCUL HAYDEN WEEKLY No testostero ne cypionate 200 mg/mL intramuscu lar oil INJECT 0.5 ML INTRAMUSCU LARLY WEEKLY [facility] alfuzosin ER 10 mg tablet,exte nded release 24 hr TAKE 1 TABLET BY MOUTH EVERY DAY alfuzosin ER 10 mg tablet,exte nded release 24 hr TAKE 1 TABLET BY MOUTH EVERY DAY No alfuzosin ER 10 mg tablet,ext ended release 24 hr TAKE 1 TABLET BY MOUTH EVERY DAY [facility] anastrozole 1 mg tablet TAKE 1 TABLET BY MOUTH ONE TIME PER WEEK anastrozole 1 mg tablet TAKE 1 TABLET BY MOUTH ONE TIME PER WEEK No anastrozol e 1 mg tablet TAKE 1 TABLET BY MOUTH ONE TIME PER WEEK [facility] carvedilol 12.5 mg tablet TAKE 1 TABLET BY MOUTH EVERY DAY carvedilol 12.5 mg tablet TAKE 1 TABLET BY MOUTH EVERY DAY No carvedilol 12.5 mg tablet TAKE 1 TABLET BY MOUTH EVERY DAY [facility] diltiazem ER 120 mg capsule,24 hr,extended release TAKE 1 CAPSULE BY MOUTH EVERY DAY diltiazem ER 120 mg capsule,24 hr,extended release TAKE 1 CAPSULE BY MOUTH EVERY DAY No diltiazem ER 120 mg capsule,24 hr,extende d release TAKE 1 CAPSULE BY MOUTH EVERY DAY [facility] diltiazem ER 180 mg capsule,24 hr,extended release TAKE 1 CAPSULE BY MOUTH EVERY DAY diltiazem ER 180 mg capsule,24 hr,extended release TAKE 1 CAPSULE BY MOUTH EVERY DAY No diltiazem ER 180 mg capsule,24 hr,extende d release TAKE 1 CAPSULE BY MOUTH EVERY DAY [facility] fenofibrate 54 mg tablet TAKE 1 TABLET BY MOUTH EVERY DAY fenofibrate 54 mg tablet TAKE 1 TABLET BY MOUTH EVERY DAY No fenofibrat e 54 mg tablet TAKE 1 TABLET BY MOUTH EVERY DAY [facility] rosuvastati n 10 mg tablet TAKE 1 TABLET DAILY rosuvastati n 10 mg tablet TAKE 1 TABLET DAILY No rosuvastat in 10 mg tablet TAKE 1 TABLET DAILY [facility] tamsulosin 0.4 mg capsule TAKE 1 CAPSULE BY MOUTH EVERY DAY tamsulosin 0.4 mg capsule TAKE 1 CAPSULE BY MOUTH EVERY DAY No tamsulosin 0.4 mg capsule TAKE 1 CAPSULE BY MOUTH EVERY DAY [facility] testosteron e cypionate 200 mg/mL intramuscul ar oil Inject 0.5 mL every week by intramuscul ar route. testosteron e cypionate 200 mg/mL intramuscul ar oil Inject 0.5 mL every week by intramuscul ar route. No testostero ne cypionate 200 mg/mL intramuscu lar oil Inject 0.5 mL every week by intramuscu lar route. [facility] anastrozole 1 mg tablet Take 1 tablet every week by oral route. anastrozole 1 mg tablet Take 1 tablet every week by oral route. No 1 Q1W anastrozol e 1 mg tablet Take 1 tablet every week by oral route. [facility] carvedilol 12.5 mg tablet carvedilol 12.5 mg tablet No carvedilol 12.5 mg tablet [facility] diltiazem ER 300 mg capsule,24 hr,extended release diltiazem ER 300 mg capsule,24 hr,extended release No diltiazem ER 300 mg capsule,24 hr,extende d release [facility] fenofibrate 54 mg tablet fenofibrate 54 mg tablet No fenofibrat e 54 mg tablet [facility] testosteron e cypionate 200 mg/mL intramuscul ar oil Inject 0.5 mL every week by intramuscul ar route. testosteron e cypionate 200 mg/mL intramuscul ar oil Inject 0.5 mL every week by intramuscul ar route. No .5mL Q1W testostero ne cypionate 200 mg/mL intramuscu lar oil Inject 0.5 mL every week by intramuscu lar route. [facility] anastrozole 1 mg tablet TAKE 1 TABLET BY MOUTH EVERY WEEK anastrozole 1 mg tablet TAKE 1 TABLET BY MOUTH EVERY WEEK No anastrozol e 1 mg tablet TAKE 1 TABLET BY MOUTH EVERY WEEK [facility] carvedilol 12.5 mg tablet TAKE 1 TABLET BY MOUTH EVERY DAY IN THE MORNING carvedilol 12.5 mg tablet TAKE 1 TABLET BY MOUTH EVERY DAY IN THE MORNING No carvedilol 12.5 mg tablet TAKE 1 TABLET BY MOUTH EVERY DAY IN THE MORNING [facility] diltiazem ER 300 mg capsule,24 hr,extended release TAKE 1 CAPSULE BY MOUTH EVERY DAY diltiazem ER 300 mg capsule,24 hr,extended release TAKE 1 CAPSULE BY MOUTH EVERY DAY No diltiazem ER 300 mg capsule,24 hr,extende d release TAKE 1 CAPSULE BY MOUTH EVERY DAY [facility] fenofibrate 54 mg tablet TAKE 1 TABLET BY MOUTH EVERY DAY fenofibrate 54 mg tablet TAKE 1 TABLET BY MOUTH EVERY DAY No fenofibrat e 54 mg tablet TAKE 1 TABLET BY MOUTH EVERY DAY [facility] testosteron e cypionate 200 mg/mL intramuscul ar oil Inject 0.5 mL every week by intramuscul ar route. testosteron e cypionate 200 mg/mL intramuscul ar oil Inject 0.5 mL every week by intramuscul ar route. No .5mL Q1W testostero ne cypionate 200 mg/mL intramuscu lar oil Inject 0.5 mL every week by intramuscu lar route. [facility] anastrozole 1 mg tablet TAKE 1 TABLET BY MOUTH ONE TIME PER WEEK anastrozole 1 mg tablet TAKE 1 TABLET BY MOUTH ONE TIME PER WEEK No anastrozol e 1 mg tablet TAKE 1 TABLET BY MOUTH ONE TIME PER WEEK [facility] benzonatate 100 mg capsule TAKE 1-2 CAPSULES EVERY BY MOUTH 8 HOURS DIRECTED. benzonatate 100 mg capsule TAKE 1-2 CAPSULES EVERY BY MOUTH 8 HOURS DIRECTED. No benzonatat e 100 mg capsule TAKE 1-2 CAPSULES EVERY BY MOUTH 8 HOURS DIRECTED. [facility] bromphenira mine-pseudo ephedrine-D M 2 mg-30 mg-10 mg/5 mL oral syrup TAKE 10 ML BY MOUTH EVERY 4 HOURS NEEDED bromphenira mine-pseudo ephedrine-D M 2 mg-30 mg-10 mg/5 mL oral syrup TAKE 10 ML BY MOUTH EVERY 4 HOURS NEEDED No bromphenir amine-pseu doephedrin e-DM 2 mg-30 mg-10 mg/5 mL oral syrup TAKE 10 ML BY MOUTH EVERY 4 HOURS NEEDED [facility] carvedilol 12.5 mg tablet TAKE 1 TABLET BY MOUTH EVERY DAY carvedilol 12.5 mg tablet TAKE 1 TABLET BY MOUTH EVERY DAY No carvedilol 12.5 mg tablet TAKE 1 TABLET BY MOUTH EVERY DAY [facility] diltiazem ER 300 mg capsule,24 hr,extended release TAKE 1 CAPSULE BY MOUTH EVERY DAY diltiazem ER 300 mg capsule,24 hr,extended release TAKE 1 CAPSULE BY MOUTH EVERY DAY No diltiazem ER 300 mg capsule,24 hr,extende d release TAKE 1 CAPSULE BY MOUTH EVERY DAY [facility] fenofibrate 54 mg tablet TAKE 1 TABLET BY MOUTH EVERY DAY fenofibrate 54 mg tablet TAKE 1 TABLET BY MOUTH EVERY DAY No fenofibrat e 54 mg tablet TAKE 1 TABLET BY MOUTH EVERY DAY [facility] hydrocodone 7.5 mg-acetamin ophen 325 mg tablet hydrocodone 7.5 mg-acetamin ophen 325 mg tablet No hydrocodon e 7.5 mg-acetami nophen 325 mg tablet [facility] ibuprofen 800 mg tablet ibuprofen 800 mg tablet No ibuprofen 800 mg tablet [facility] rosuvastati n 10 mg tablet TAKE 1 TABLET BY MOUTH EVERY DAY rosuvastati n 10 mg tablet TAKE 1 TABLET BY MOUTH EVERY DAY No rosuvastat in 10 mg tablet TAKE 1 TABLET BY MOUTH EVERY DAY [facility] testosteron e cypionate 200 mg/mL intramuscul ar oil Inject 0.5 mL every week by intramuscul ar route. testosteron e cypionate 200 mg/mL intramuscul ar oil Inject 0.5 mL every week by intramuscul ar route. No .5mL Q1W testostero ne cypionate 200 mg/mL intramuscu lar oil Inject 0.5 mL every week by intramuscu lar route. [facility] Immunizations Ordered Immunization Name Filled Immunization Name Date Status Comments Source COVID-19, mRNA, LNP-S, PF, 100 mcg/0.5 mL dose (Moderna) COVID-19, mRNA, LNP-S, PF, 100 mcg/0.5 mL dose (Moderna) 2020-07-05 00:00:00 Completed [facility] COVID-19, mRNA, LNP-S, PF, 100 mcg/0.5 mL dose (Moderna) COVID-19, mRNA, LNP-S, PF, 100 mcg/0.5 mL dose (Moderna) 2020-07-05 00:00:00 Completed [facility] COVID-19, mRNA, LNP-S, PF, 100 mcg/0.5 mL dose (Moderna) COVID-19, mRNA, LNP-S, PF, 100 mcg/0.5 mL dose (Moderna) 2020-07-05 00:00:00 Completed [facility] COVID-19, mRNA, LNP-S, PF, 100 mcg/0.5 mL dose (Moderna) COVID-19, mRNA, LNP-S, PF, 100 mcg/0.5 mL dose (Moderna) 2020-07-05 00:00:00 Completed [facility] COVID-19, mRNA, LNP-S, PF, 100 mcg/0.5 mL dose (Moderna) COVID-19, mRNA, LNP-S, PF, 100 mcg/0.5 mL dose (Moderna) 2020-07-05 00:00:00 Completed [facility] COVID-19, mRNA, LNP-S, PF, 100 mcg/0.5 mL dose (Moderna) COVID-19, mRNA, LNP-S, PF, 100 mcg/0.5 mL dose (Moderna) 2020-06-07 00:00:00 Completed [facility] COVID-19, mRNA, LNP-S, PF, 100 mcg/0.5 mL dose (Moderna) COVID-19, mRNA, LNP-S, PF, 100 mcg/0.5 mL dose (Moderna) 2020-06-07 00:00:00 Completed [facility] COVID-19, mRNA, LNP-S, PF, 100 mcg/0.5 mL dose (Moderna) COVID-19, mRNA, LNP-S, PF, 100 mcg/0.5 mL dose (Moderna) 2020-06-07 00:00:00 Completed [facility] COVID-19, mRNA, LNP-S, PF, 100 mcg/0.5 mL dose (Moderna) COVID-19, mRNA, LNP-S, PF, 100 mcg/0.5 mL dose (Moderna) 2020-06-07 00:00:00 Completed [facility] COVID-19, mRNA, LNP-S, PF, 100 mcg/0.5 mL dose (Moderna) COVID-19, mRNA, LNP-S, PF, 100 mcg/0.5 mL dose (Moderna) 2020-06-07 00:00:00 Completed [facility] COVID-19, mRNA, LNP-S, PF, 100 mcg/0.5 mL dose (Moderna) COVID-19, mRNA, LNP-S, PF, 100 mcg/0.5 mL dose (Moderna) Unknown Completed [facility] COVID-19, mRNA, LNP-S, PF, 100 mcg/0.5 mL dose (Moderna) COVID-19, mRNA, LNP-S, PF, 100 mcg/0.5 mL dose (Moderna) Unknown Completed [facility] COVID-19, mRNA, LNP-S, PF, 100 mcg/0.5 mL dose (Moderna) COVID-19, mRNA, LNP-S, PF, 100 mcg/0.5 mL dose (Moderna) Unknown Completed [facility] COVID-19, mRNA, LNP-S, PF, 100 mcg/0.5 mL dose (Moderna) COVID-19, mRNA, LNP-S, PF, 100 mcg/0.5 mL dose (Moderna) Unknown Completed [facility] Vital Signs Vital Name Observation Time Observation Value Comments S ource Body Weight 2023-04-21 00:00:00 187 [lb_av] Lauren ston [facility] BMI (Body Mass Index) 2023-04-21 00:00:00 30.2 kg/m2 [facility] Height 2023-04-21 00:00:00 66 [in_i] [facility] Height 2022-12-30 00:00:00 66 [in_i] [place] [facility] Body Weight 2022-12-30 00:00:00 187 [lb_av] [facility] BMI (Body Mass Index) 2022-12-30 00:00:00 30.2 kg/m2 [facility] BMI (Body Mass Index) 2022-12-23 00:00:00 30.2 kg/m2 [facility] Height 2022-12-23 00:00:00 66 [in_i] [facility] [facility] Body Weight 2022-12-23 00:00:00 187 [lb_av] [facility] Height 2022-10-17 00:00:00 66 [in_i] [facility] BMI (Body Mass Index) 2022-10-17 00:00:00 30.2 kg/m2 [facility] Body Weight 2022-10-17 00:00:00 187 [lb_av] [facility] Height 2022-04-18 00:00:00 66 [in_i] [facility] [facility] BMI (Body Mass Index) 2022-04-18 00:00:00 30 kg/m2 [facility] Body Weight 2022-04-18 00:00:00 186 [lb_av] [facility] Height 2021-10-15 00:00:00 66 [in_i] [place] [facility] BMI (Body Mass Index) 2021-10-15 00:00:00 30.2 kg/m2 [facility] Body Weight 2021-10-15 00:00:00 187 [lb_av] [facility] Height 2021-04-16 00:00:00 66 [in_i] [place] [facility] BMI (Body Mass Index) 2021-04-16 00:00:00 30.5 kg/m2 [facility] Body Weight 2021-04-16 00:00:00 189 [lb_av] [facility] Procedures Procedure Date / Time Performed Performing Clinicia n Source Diagnostic Colonoscopy 2018-04-07 00:00:00 [facility] Plan of Care Planned Activity Planned Date Details Comments Source Diagnostic Test Pending 2023-04-21 00:00:00 urinalysis, dipstick [code = urinalysis, dipstick] [facility] Diagnostic Test Pending 2023-04-21 00:00:00 PSA, serum or plasma [code = PSA, serum or plasma] [facility] Diagnostic Test Pending 2023-04-21 00:00:00 testosterone, total, serum [code = testosterone, total, serum] [facility] Diagnostic Test Pending 2023-04-21 00:00:00 estradiol, serum [code = estradiol, serum] [facility] Diagnostic Test Pending 2023-04-21 00:00:00 hemoglobin + hematocrit, blood [code = hemoglobin + hematocrit, blood] [facility] Future Appointment 2023-10-20 08:45:00 Chano Alaniz, [address]; , [place] [address] [facility] Future Appointment 2023-10-20 00:00:00 Chano Alaniz, [address]; , [place] [address] [facility] Encounters Start Date/Time End Date/Time Encounter Type Admission Type Attending [facility] Care Department Encounter ID Source 2023-04-21 00:00:00 2023-04-21 00:00:00 Outpatient [facility] [id number] [facility] 2023-04-21 00:00:00 2023-04-21 00:00:00 Chano Alaniz MD: [id number], [place] [address] , Ph. [facility] - [phone] [facility] 2023-04-17 00:00:00 2023-04-17 00:00:00 Outpatient [facility] [id number] [facility] [facility] 2023-03-19 00:00:00 2023-03-19 00:00:00 Outpatient Lapin[facility] [id number] [facility] 2023-02-12 00:00:00 2023-02-12 00:00:00 Outpatient Lapin[facility]S [facility] [id number] [facility] 2023-01-10 00:00:00 2023-01-10 00:00:00 Outpatient [facility]in[facility]S [facility] HMU [id number] [facility] 2023-01-08 00:00:00 2023-01-08 00:00:00 Outpatient Lapin[facility]S [facility]U [id number] [facility] 2023-01-08 00:00:00 2023-01-08 00:00:00 Outpatient Lapin_S [facility] HMU [id number] [facility] 2022-12-30 00:00:00 2022-12-30 00:00:00 Outpatient Lapin[facility]S [facility] HMU [id number] [facility] 2022-12-30 00:00:00 2022-12-30 00:00:00 Outpatient Lapin[facility]S [facility] [id number] [facility] 2022-12-30 00:00:00 2022-12-30 00:00:00 Chano Alaniz MD: [address] [address] , Ph. [facility] - [phone] [facility] 2022-12-25 00:00:00 2022-12-25 00:00:00 Outpatient Lapin_S [facility] HMU [id number] [facility] 2022-12-23 00:00:00 2022-12-23 00:00:00 Chano Alaniz MD: [address] [address], [place] [address] , Ph. [facility] - [id number] [facility] 2022-11-19 00:00:00 2022-11-19 00:00:00 Outpatient Lapin_S [facility] HMU [id number] [facility] 2022-11-19 00:00:00 2022-11-19 00:00:00 Outpatient Lapin_S [facility] [id number] [facility] 2022-10-17 00:00:00 2022-10-17 00:00:00 Outpatient Lapin_S [facility] HMU [id number] [facility] 2022-10-17 00:00:00 2022-10-17 00:00:00 Outpatient Lapin_S [facility] U [id number] [facility] 2022-10-17 00:00:00 2022-10-17 00:00:00 Chano Alaniz MD: [address], [place] [address] , [facility] [id number] [facility] 2022-04-18 00:00:00 2022-04-18 00:00:00 Outpatient Lapin_S [facility] U [id number] [facility] 2022-04-18 00:00:00 2022-04-18 00:00:00 Outpatient Lapin_S [facility] U [id number] [facility] 2022-04-18 00:00:00 2022-04-18 00:00:00 Chano Alaniz MD: [address], [place] [address] , Ph. [facility] - [phone] [facility] 2021-10-30 12:54:00 2021-10-30 12:54:00 Outpatient Lapin_S [facility] U [id number] [facility] 2021-10-16 10:02:00 2021-10-16 10:02:00 Outpatient Lapin_S [facility] HMU [id number] [facility] 2021-10-15 11:26:00 2021-10-15 11:26:00 Outpatient Lapin_S [facility] HMU [id number] [facility] 2021-10-15 00:00:00 2021-10-15 00:00:00 Outpatient Chano Aalniz U U [id number] 2021-10-15 00:00:00 2021-10-15 00:00:00 Chano Alaniz MD: [address], [place] [address] , Ph. U [facility] [address] [id number] [facility] 2021-09-10 04:53:00 2021-09-10 04:53:00 Outpatient [facility]in[facility]S [facility] [id number] [facility] 2021-04-16 11:16:00 2021-04-16 11:16:00 Outpatient [facility] [id number] [facility] 2021-04-16 00:00:00 2021-04-16 00:00:00 Chano Alaniz MD: [address], [place] [address] , Ph. U [facility] [id number] [facility] 2021-04-16 00:00:00 2021-04-16 00:00:00 Outpatient Chano Alaniz U U [id number] 2021-04-10 11:59:00 2021-04-10 11:59:00 Outpatient [facility] [id number] [facility] 2021-03-26 05:53:00 2021-03-26 05:53:00 Outpatient [facility]in[facility]S [facility] [id number] [facility]
--- NOTE | 2023-07-14 09:25 | EDPHYS ---
Physician Documentation [facility] Name: Watson Martines Age: 57 yrs Sex: Male : 1965 Arrival Date: 07/14/2023 Time: 09:01 Bed 20 Private MD: ED Physician Norm Zarco HPI: 07/13 09:18 This 57 yrs old Black Male presents to ER via Ambulatory with complaints of Hand jh7 Swelling - Finger. 09:18 The patient or guardian reports decreased range of motion, pain, swelling, tenderness. jh7 The complaints affect the PIP of right middle finger. Context: The problem was sustained at home, resulted from Puncture from a cactus thorn. Associated signs and symptoms: Pertinent negatives: cyanosis distally, decreased sensation distally, fever, nausea, numbness distally, tingling distally, vomiting. 57-year-old male with a past medical history of hypertension and high cholesterol presents to the ER for possible foreign body in the right third digit. The patient was seen at [facility] on July 10 where he states that he was stabbed by some sort of cactus on his right third digit. He returned the next level today after being on Bactrim for a few days, with worsening symptoms. He was sent to the ER for IV antibiotics and further eval.. Historical: - Allergies: 09:19 PENICILLINS; iw - Home Meds: 09:19 Diltiazem Oral [Active]; fenofibrate oral [Active]; iw - PMHx: 09:19 Hypertensive disorder; hyperlipidemia; iw - PSHx: 09:19 Appendectomy; Elbow; iw - Immunization history:: Adult Immunizations up to date, Last tetanus immunization: up to date. - Infectious Disease History:: Denies. - Social history:: Smoking status: Patient denies any tobacco usage or history of. ROS: 09:18 Constitutional: Negative for fever, chills, and weight loss, Eyes: Negative for injury, jh7 pain, redness, and discharge, Neck: Negative for injury, pain, and swelling, Cardiovascular: Negative for chest pain, palpitations, and edema, Respiratory: Negative for shortness of breath, cough, wheezing, and pleuritic chest pain, Abdomen/GI: Negative for abdominal pain, nausea, vomiting, diarrhea, and constipation, Neuro: Negative for headache, weakness, numbness, tingling, and seizure, 09:18 MS/extremity: Positive for decreased range of motion, pain, swelling, tenderness, warmth, of the PIP of right middle finger, 09:18 Skin: Positive for abscess, cellulitis, swelling, of the PIP of right middle finger, 09:18 All other systems are negative, Exam: 09:18 Constitutional: This is a well developed, well nourished patient who is awake, alert, jh7 and in no acute distress. Head/Face: Normocephalic, atraumatic. Neck: Trachea midline, no thyromegaly or masses palpated, and no cervical lymphadenopathy. Supple, full range of motion without nuchal rigidity, or vertebral point tenderness. No Meningismus. Cardiovascular: Regular rate and rhythm with a normal S1 and S2. No gallops, murmurs, or rubs. Normal PMI, no JVD. No pulse deficits. Respiratory: Lungs have equal breath sounds bilaterally, clear to auscultation and percussion. No rales, rhonchi or wheezes noted. No increased work of breathing, no retractions or nasal flaring. Back: No spinal tenderness. No costovertebral tenderness. Full range of motion. Neuro: Awake and alert, GCS 15, oriented to person, place, time, and situation. Normal gait. 09:18 Musculoskeletal/extremity: ROM: limited active range of motion, in the PIP of right middle finger, Mild limitations in flexion secondary to significant swelling at the PIP, 09:18 Musculoskeletal/extremity: Circulation is intact in all extremities. Pulses: are normal with no appreciated deficits, Perfusion: the extremity is normally perfused throughout, pink, warm, with brisk capillary refill, Sensation intact. 09:18 Skin: abscess, that is moderate sized, of the PIP of right middle finger, with drainage, with surrounding cellulitis, cellulitis, that is moderate, on the PIP of right middle finger, Vital Signs: 09:23 BP 103 / 70; Pulse 79; Resp 16; Pulse Ox 98% on R/A; Weight 84.82 kg; Height 5 ft. 6 iw in. ; 11:30 BP 121 / 76; Pulse 59; Resp 18; Pulse Ox 100% on R/A; ld1 09:23 Body Mass Index 30.18 (84.82 kg, 167.64 cm) iw MDM: 09:07 Patient medically screened. [facility] 11:14 Management of patient was discussed with the following: Gas Welder: juan Guerra [facility] surgeon at [facility]. 11:15 Differential diagnosis: dislocation, closed fracture. Data reviewed: vital signs, [facility] nurses notes, lab test result(s), radiologic studies, CT scan. Data reviewed: radiologic studies, plain films. Consideration of Admission/Observation Will be transferred for higher level of care. I considered the following discharge prescriptions or medication management in the emergency department Medications were administered in the Emergency Department. See MAR. Independent interpretation of the following test(s) in the Emergency Department X-Ray: My interpretation is Soft tissue swelling. External Records Reviewed: Outpatient record: Notes from urgent care from 07/10. Care significantly affected by the following chronic conditions: Hypertension. Counseling: I had a detailed discussion with the patient and/or guardian regarding the historical points, exam findings, and any diagnostic results supporting the discharge/admit diagnosis, the need to transfer to another facility, for higher level of care, [facility] does not immediately have the required specialist. 07/13 09:23 Order name: Blood Culture Adult (2) [facility] 07/13 09:23 Order name: CBC with Diff; Complete Time: 10:21 [facility] 07/13 09:23 Order name: CMP; Complete Time: 10:26 [facility] 07/13 09:23 Order name: Lactate w/ 2H reflex if indic.; Complete Time: 10:21 [facility] 07/13 09:23 Order name: Protime (+inr); Complete Time: 10:21 [facility] 07/13 09:23 Order name: Ptt, Activated; Complete Time: 10:21 [facility] 07/13 09:23 Order name: Wound Culture [facility] 07/13 09:23 Order name: XRAY Hand RIGHT 3 View; Complete Time: 10:56 [facility] 07/13 09:23 Order name: IV Saline Lock - Large Bore; Complete Time: 09:37 [facility] 07/13 09:23 Order name: Labs collected and sent; Complete Time: 09:52 [facility] 07/13 09:23 Order name: Vital Signs; Complete Time: 09:37 [facility] Administered Medications: 10:08 Drug: Cefepime IVPB 1 grams IVPB at 200 ml/hr once over 30 mins; (mix in NS 100 mL) ld1 Route: IVPB; Rate: 200 ml/hr; Infused Over: 30 mins; Site: right upper arm; 10:33 Drug: vancoMYCIN IVPB 1 grams IVPB once over 2 hrs Route: IVPB; Infused Over: 2 hrs; ld1 Site: left antecubital; 12:35 Not Given (Patient Refused): ns 0.9% 1000 ml IV at 1 bolus Per protocol; 1000 mL bolus ld1 Disposition Summary: 07/14/23 09:25 Transfer Ordered Notes: Reason: Higher level of care [facility] Condition: Fair [facility] Problem: new [facility] Symptoms: have worsened jh7 Transfer Location: [facility](07/14/23 11:15) [facility] Accepting Physician: Dr. Ang(07/14/23 12:35) ld1 Diagnosis - Cellulitis of finger jh7 - Possible retained foreign body in right third digit jh7 - Abscess of the right third phalanx [facility] Forms: - Medication Reconciliation Form 7 - SBAR form 7 Signatures: Dispatcher [employer] EDRhianna Plascencia RN RN Libertad Glaser RN RN ld1 Elvia Castro, REED REPAIRER REED REPAIRER [facility] Corrections: (The following items were deleted from the chart) 09:24 09:24 BLOOD CULTURE*+BA.LAB.BRZ ordered. EDMS EDMS 09:24 09:24 CBC+H.LAB.BRZ ordered. EDMS EDMS 09:24 09:24 COMPREHENSIVE METABOLIC PANEL+C.LAB.BRZ ordered. EDMS EDMS 09:24 09:24 LACTATE+C.LAB.BRZ ordered. EDMS EDMS 09:24 09:24 PROTIME (+INR)+COAG.LAB.BRZ ordered. EDMS EDMS 09:24 09:24 PTT, ACTIVATED+COAG.LAB.BRZ ordered. EDMS EDMS 09:24 09:24 Wound Culture+BA.LAB.BRZ ordered. EDMS EDMS 09:24 09:24 Hand Right 3 View+RAD.RAD.BRZ ordered. EDMS EDMS 10:22 10:22 Hand Right 3 View+RAD.RAD.BRZ ordered. EDSD EDMS 11:15 09:25 Accepting [facility] 11:15 09:25 [address] [place] [address] 12:35 11:15 Dr. Ang jh7 ld1
--- NOTE | 2023-07-14 09:25 | ER ---
Nurse's Notes [facility] Name: Watson Martines Age: 57 yrs Sex: Male : 1965 Arrival Date: 07/14/2023 Time: 09:01 Bed 20 Private MD: Diagnosis: Cellulitis of finger;Possible retained foreign body in right third digit;Abscess of the right third phalanx Presentation: 07/13 09:18 Chief complaint: Patient states: got a thorn stuck in right middle finger last Friday iw , has been on antibiotics since Friday , not getting any better, sent to ER for eval. Coronavirus screen: At this time, the client does not indicate any symptoms associated with coronavirus-19. Ebola Screen: Patient negative for fever greater than or equal to 101.5 degrees Fahrenheit, and additional compatible Ebola Virus Disease symptoms Patient denies exposure to infectious person. Patient denies travel to an Ebola-affected area in the 21 days before illness onset. No symptoms or risks identified at this time. Initial Sepsis Screen: Does the patient meet any 2 criteria? No. Patient's initial sepsis screen is negative. Does the patient have a suspected source of infection? No. Patient's initial sepsis screen is negative. Risk Assessment: Do you want to hurt yourself or someone else? Patient reports no desire to harm self or others. Onset of symptoms was July 07, 2023. 09:18 Acuity: VALERIA 3 iw 09:18 Method Of Arrival: Ambulatory iw Historical: - Allergies: 09:19 PENICILLINS; iw - Home Meds: 09:19 Diltiazem Oral [Active]; fenofibrate oral [Active]; iw - PMHx: 09:19 Hypertensive disorder; hyperlipidemia; iw - PSHx: 09:19 Appendectomy; Elbow; iw - Immunization history:: Adult Immunizations up to date, Last tetanus immunization: up to date. - Infectious Disease History:: Denies. - Social history:: Smoking status: Patient denies any tobacco usage or history of. Screenin:30 [facility] ED Fall Risk Assessment (Adult) History of falling in the last 3 months, ld1 including since admission No falls in past 3 months (0 pts). Abuse screen: Denies threats or abuse. Denies injuries from another. Nutritional screening: No deficits noted. Tuberculosis screening: No symptoms or risk factors identified. Assessment: 11:30 General: Appears in no apparent distress. comfortable, Behavior is calm, cooperative, ld1 appropriate for age. 11:30 Pain: Complains of pain in right hand and PIP of right middle finger Pain does not ld1 radiate. Pain currently is 9 out of 10 on a pain scale. Quality of pain is described as pressure, sharp, throbbing, Pain began 2-3 days ago. Is continuous. Neuro: Level of Consciousness is awake, alert, obeys commands, Oriented to person, place, time, situation. Cardiovascular: Capillary refill < 3 seconds Patient's skin is warm and dry. Respiratory: Airway is patent Respiratory effort is even, unlabored. GI: Abdomen is flat, non-distended. : No signs and/or symptoms were reported regarding the genitourinary system. EENT: No signs and/or symptoms were reported regarding the EENT system. Derm: No signs and/or symptoms reported regarding the dermatologic system. Musculoskeletal: No signs and/or symptoms reported regarding the musculoskeletal system. Vital Signs: 09:23 BP 103 / 70; Pulse 79; Resp 16; Pulse Ox 98% on R/A; Weight 84.82 kg; Height 5 ft. 6 iw in. ; 11:30 BP 121 / 76; Pulse 59; Resp 18; Pulse Ox 100% on R/A; ld1 09:23 Body Mass Index 30.18 (84.82 kg, 167.64 cm) ED Course: 09:05 Patient arrived in ED. mg5 09:06 Elvia Castro FNP is [facility] jh7 09:06 Norm Zarco MD is Attending Physician. jh7 09:19 Triage completed. iw 09:22 Arm band placed on. iw 09:37 Libertad Glaser, FELIPE is Primary Nurse. ld1 09:51 Blood Culture Adult (2) Sent. ld1 09:51 Lactate w/ 2H reflex if indic. Sent. ld1 10:37 XRAY Hand RIGHT 3 View In Process Unspecified. EDMS 11:07 initiated transfer to [facility]. bd 11:30 Patient has correct armband on for positive identification. Placed in gown. Bed in low ld1 position. Call light in reach. Side rails up X2. nuclear monitoring technician on. Pulse ox on. NIBP on. Door closed. Noise minimized. 11:30 No provider procedures requiring assistance completed. ld1 11:55 pt accepted in transfer to [facility] by dr jaramillo admin approval given by Phill Alcantara rn. 12:34 Provided Education on: need for transfer. ld1 12:34 Patient transferred, IV remains in place. ld1 Administered Medications: 10:08 Drug: Cefepime IVPB 1 grams IVPB at 200 ml/hr once over 30 mins; (mix in NS 100 mL) ld1 Route: IVPB; Rate: 200 ml/hr; Infused Over: 30 mins; Site: right upper arm; 10:33 Drug: vancoMYCIN IVPB 1 grams IVPB once over 2 hrs Route: IVPB; Infused Over: 2 hrs; ld1 Site: left antecubital; 12:35 Not Given (Patient Refused): ns 0.9% 1000 ml IV at 1 bolus Per protocol; 1000 mL bolus ld1 Medication: 11:30 VIS not applicable for this client. ld1 Outcome: 09:25 ER care complete, transfer ordered by MD. young 12:34 Transferred by ground EMS ld1 12:34 Condition: stable 12:34 Instructed on the need for transfer, 12:35 Patient left the ED. ld1 Signatures: Dispatcher [employer] EDMS Cindy Tovar Irene, RN RN iw Sims, Lauren, RN RN ld1 Elvia Castro FNP FNP 7 Bailee Clark 5
[2023-07-14] MEDS ORDERED: NA CHLORIDE 0.9% 100 ML ONE (09:40)
[2023-07-14] MEDS ORDERED: NA CHLORIDE 0.9% 250 ML ONE (09:40)
[2023-07-14] MEDS ORDERED: CEFEPIME 1 GM/VIAL ONE (09:40)
[2023-07-14] MEDS ORDERED: VANCOMYCIN 1 GM/VIAL ONE (09:40)
[2023-07-14 10:04] LABS: Absolute Basophils 0.1 K/uL (0-0.5); Absolute Eosinophils 0.1 K/uL (0-0.5); Absolute Monocytes 0.4 K/uL (0.1-1.3); Absolute Neutrophil 2.3 K/uL (1.8-8.0); Basophils % 1.4 % (0-1.3); Eosinophils % 2.4 % (0-4.4); Hematocrit 45.1 % (39.6-49.0); Lymphocytes % 26.2 % (15.3-44.8); MCH 27.3 pg (27.0-35.0); MCHC 33.2 g/dL (32.0-36.0); MCV 82.1 fL (80-100); MPV 8.4 fL (7.6-11.3); Monocytes % 10.2 % (3.3-12.3); Neutrophils % 59.8 % (41.7-73.7); Nucleated Red Blood Cells % 0.2 % (0-0); Platelets 198 thou/uL (152-406); RBC Red Blood Cell Count 5.49 M/uL (4.33-5.43); Red Cell Distribution Width 16.7 % (12.1-15.2)
[2023-07-14 10:05] LABS: PT Prothrombin Time 13.1 SECONDS (9.5-12.5); Protime INR 1.2
[2023-07-14 10:22] LABS: Albumin 3.6 g/dL (3.4-5.0); Albumin/Globulin Ratio 0.9 (1.1-1.8); Anion Gap 7.4 mEq/L (5.0-15.0); Bilirubin Total 0.4 mg/dL (0.2-1.0); Globulin 4.1 g/dL (2.3-3.5); Potassium 4.4 mEq/L (3.5-5.1); Protein, Total 7.7 g/dL (6.4-8.2)
--- NOTE | 2023-07-14 10:56 | RAD REPORT ---
EXAM DESCRIPTION: RAD - Hand Right 3 View - 07/14/2023 10:35 am CLINICAL HISTORY: Pain;Swelling COMPARISON: No comparisons TECHNIQUE: Right hand, 3 views. FINDINGS: No fracture is identified. There is no dislocation or periosteal reaction noted. Soft tissue swelling about the third digit. No foreign body or other soft tissue abnormality. IMPRESSION: Soft tissue swelling about the third digit. No radiopaque foreign body or acute osseous abnormality.
[2023-07-14 16:35] VITALS: BP 121/76; O2SAT 100
== END 2023-07-14 12:35 | disposition short-term general hospital (02) ==
LOC: ER 09:01
DX: L03.011 Cellulitis of right finger (principal); L02.511 Cutaneous abscess of right hand; Z88.0 Allergy status to penicillin
CPT/HCPCS: 87040 ×2; 87070; 85025; 36415; 87205; 85610; 83605; 85730; 80053; 73130; 99285; J7050; J0692; 87077; 87186

== ENCOUNTER 2024-01-21 06:40 | Emergency (ER) | payer BC, OTHER ==
[2024-01-21] MEDS ORDERED: ONDANSETRON 4 MG/2 ML VIAL ONE (06:56)
[2024-01-21] MEDS ORDERED: KETOROLAC 30 MG/ML INJ ONE (06:57)
[2024-01-21] MEDS ORDERED: NA CHLORIDE 0.9% 1,000 ML ONE (06:57)
[2024-01-21] MEDS ORDERED: MORPHINE 4 MG/ML SYR ONE (06:57)
[2024-01-21] MEDS ORDERED: FAMOTIDINE 20 MG/2 ML VIAL IV ONE (06:57)
[2024-01-21 07:11] LABS: Absolute Basophils 0.1 K/uL (0-0.5); Absolute Eosinophils 0.1 K/uL (0-0.5); Absolute Lymphocytes (CBC) 1.7 K/uL (0.7-4.9); Absolute Monocytes 0.5 K/uL (0.1-1.3); Absolute Neutrophil 2.6 K/uL (1.8-8.0); Basophils % 1.8 % (0-1.3); Eosinophils % 2.3 % (0-4.4); Hematocrit 47.5 % (39.6-49.0); Hemoglobin 15.8 g/dL (13.6-17.9); Lymphocytes % 33.1 % (15.3-44.8); MCH 28.1 pg (27.0-35.0); MCHC 33.3 g/dL (32.0-36.0); MCV 84.3 fL (80-100); MPV 8.8 fL (7.6-11.3); Monocytes % 9.8 % (3.3-12.3); Nucleated Red Blood Cells % 0.3 % (0-0); Platelets 218 thou/uL (152-406); RBC Red Blood Cell Count 5.63 M/uL (4.33-5.43); Red Cell Distribution Width 16.1 % (12.1-15.2)
[2024-01-21 07:50] LABS: Albumin 3.2 g/dL (3.4-5.0); Albumin/Globulin Ratio 0.9 (1.1-1.8); Anion Gap 6.8 mEq/L (5.0-15.0); Bilirubin Total 0.4 mg/dL (0.2-1.0); C-Reactive Protein 4.64 mg/L (<3.00); Globulin 3.4 g/dL (2.3-3.5); Potassium 3.8 mEq/L (3.5-5.1); Protein, Total 6.6 g/dL (6.4-8.2); Troponin High Sensitivity 17.7 pg/mL (<58.9)
--- NOTE | 2024-01-21 08:26 | RAD REPORT ---
EXAMINATION: CT Abdomen Pelvis W Contrast CLINICAL INDICATION: Male, 58 years old. ABD PAIN TECHNIQUE: CT abdomen and pelvis was performed, after the administration of IV contrast, as per [facility] protocol. Axial, sagittal and coronal reconstructions were obtained. One or more of the following dose reduction techniques were used: Automated exposure control, adjustment of the mA and k V according to patient size, and iterative reconstruction. Unless otherwise specified, incidental findings do not require dedicated imaging follow-up. COMPARISON: No prior exam. FINDINGS: LOWER CHEST: The visualized lung bases are clear. LIVER: Normal in size and contour. No focal lesion. BILIARY SYSTEM: No suspicious abnormalities. SPLEEN: Normal size. No focal lesion. PANCREAS: No mass, ductal dilation, or neal-pancreatic fluid. ADRENALS: Normal; no mass. KIDNEYS: Normal size and contour. No hydronephrosis. URINARY BLADDER: Unremarkable. GASTROINTESTINAL TRACT: No evidence of free air, significant intra-abdominal free fluid, bowel obstru ction or abscess. Central abdominal small bowel anastomosis. APPENDIX: Appendix not visualized, but no inflammatory changes in region of appendix. LYMPH NODES: No lymphadenopathy. MUSCULOSKELETAL: No acute or suspicious osseous abnormality. Bilateral subchondral cysts along the ac etabular, largest on the right measuring 1.4 cm, probably a degenerative nature. ADDITIONAL FINDINGS: None. IMPRESSION: No acute or concerning abnormalities seen in the abdomen or pelvis. Incidental findings as above.
[2024-01-21 09:02] LABS: Urine Bilirubin NEGATIVE (Negative); Urine Blood Negative (Negative); Urine Clarity Clear (Clear); Urine Color Colorless (Yellow); Urine Glucose NEGATIVE (Negative); Urine Ketones NEGATIVE (Negative); Urine Microscopic Reflex YN NO UMIC; Urine Nitrite NEGATIVE (Negative); Urine Protein NEGATIVE (Negative); Urine Urobilinogen Normal (Normal)
[2024-01-21 09:04] LABS: Specific Gravity > 1.030 (1.005-1.030)
--- NOTE | 2024-01-21 09:12 | EDPHYS ---
Physician Documentation [facility] Name: Watson Martines Age: 58 yrs Sex: Male : 1965 Arrival Date: 01/21/2024 Time: 06:40 Bed 14 Private MD: ED Physician Bam Smart HPI: 01/20 07:11 This 58 yrs old Black Male presents to ER via Ambulatory with complaints of Possible rt Kidney Stone, Low Back Pain, Flank Pain. 07:11 Patient presents to the ED with a right lower back pain. Started this morning at about rt 6, the symptoms seem to be intermittent, will come and go without any inciting factors. Denies other acute complaints at this time, symptoms are moderate in severity, no other aggravating alleviating factors.. Historical: - Allergies: 06:54 PENICILLINS; vc1 - PMHx: 06:54 Hyperlipidemia; Hypertensive disorder; vc1 - PSHx: 06:54 Appendectomy; Elbow; vc1 - Immunization history:: Client reports receiving the 2nd dose of the Covid vaccine. - Infectious Disease History:: Denies. - Social history:: Smoking status: Patient denies any tobacco usage or history of. - Family history:: not pertinent. ROS: 07:11 Constitutional: Negative for fever, chills, and weight loss, Cardiovascular: Negative rt for chest pain, palpitations, and edema, Respiratory: Negative for shortness of breath, cough, wheezing, and pleuritic chest pain, Abdomen/GI: Negative for abdominal pain, nausea, vomiting, diarrhea, and constipation, MS/Extremity: Negative for injury and deformity, Skin: Negative for injury, rash, and discoloration, Neuro: Negative for headache, weakness, numbness, tingling, and seizure, 07:11 Back: Positive for pain at rest, Negative for injury or acute deformity, Exam: 07:11 Constitutional: This is a well developed, well nourished patient who is awake, alert, rt and in no acute distress. Head/Face: Normocephalic, atraumatic. Chest/axilla: Normal chest wall appearance and motion. Nontender with no deformity. No lesions are appreciated. Cardiovascular: Regular rate and rhythm with a normal S1 and S2. No gallops, murmurs, or rubs. Normal PMI, no JVD. No pulse deficits. Respiratory: Lungs have equal breath sounds bilaterally, clear to auscultation and percussion. No rales, rhonchi or wheezes noted. No increased work of breathing, no retractions or nasal flaring. Abdomen/GI: Soft, non-tender, with normal bowel sounds. No distension or tympany. No guarding or rebound. No evidence of tenderness throughout. MS/ Extremity: Pulses equal, no cyanosis. Neurovascular intact. Full, normal range of motion. Neuro: Awake and alert, GCS 15, oriented to person, place, time, and situation. Cranial nerves II-XII grossly intact. Motor strength 5/5 in all extremities. Sensory grossly intact. Cerebellar exam normal. Normal gait. 07:11 Back: Mild right lower back tenderness, no midline tenderness, no step-offs, no CVAT, Vital Signs: 06:52 BP 139 / 94; Pulse 66; Resp 17; Temp 98.2; Pulse Ox 99% ; Weight 86.18 kg; Height 5 ft. vc1 6 in. ; Pain 9/10; 07:25 BP 155 / 86; Pulse 68; Resp 17; Pulse Ox 100% on R/A; ll1 09:11 BP 139 / 93; Pulse 57; Resp 16; Pulse Ox 99% ; ll1 06:52 Body Mass Index 30.67 (86.18 kg, 167.64 cm) vc1 06:52 Pain Scale: Adult vc1 MDM: 06:59 Medical Screening Exam initiated rt 10:33 Differential diagnosis: Mechanical back pain, pyelonephritis, kidney stone. Data rt reviewed: vital signs, nurses notes. I considered the following discharge prescriptions or medication management in the emergency department Medications were administered in the Emergency Department. See MAR. Independent interpretation of the following test(s) in the Emergency Department CT Scan: My interpretation is No ureteral stone seen on interpretation of CT scan images. Care significantly affected by the following chronic conditions: Hypertension. Counseling: I had a detailed discussion with the patient and/or guardian regarding the historical points, exam findings, and any diagnostic results supporting the discharge/admit diagnosis, lab results, radiology results, the need for outpatient follow up, to return to the emergency department if symptoms worsen or persist or if there are any questions or concerns that arise at home. Response to treatment: the patient's symptoms have markedly improved after treatment. 01/20 06:53 Order name: CBC with Diff; Complete Time: 08:27 sp4 01/20 06:53 Order name: CMP; Complete Time: 08:27 sp4 01/20 06:53 Order name: Lipase; Complete Time: 08:27 sp4 01/20 06:53 Order name: Urinalysis w/ reflexes; Complete Time: 09:07 sp4 01/20 06:53 Order name: Troponin High Sensitivity; Complete Time: 08:27 sp4 01/20 06:53 Order name: CRP; Complete Time: 08:27 sp4 01/20 06:53 Order name: CT Abd/Pelvis - IV Contrast Only; Complete Time: 08:27 sp4 01/20 06:53 Order name: IV Saline Lock; Complete Time: 07:01 sp4 01/20 06:53 Order name: Labs collected and sent; Complete Time: 07:01 sp4 01/20 07:15 Order name: Labs - recollect needed: recollect green top; Complete Time: 07:25 bd Administered Medications: 07:08 Drug: Famotidine IVP 20 mg IVP once; dilute with 10 mL 0.9% NaCl; give over 2 minutes vc1 Route: IVP; Site: right antecubital; 08:46 Follow up: Response: No adverse reaction ll1 07:08 Drug: TORadol - Ketorolac IVP 30 mg IVP once Route: IVP; Site: right antecubital; vc1 08:46 Follow up: Response: No adverse reaction; Pain is decreased ll1 07:08 Drug: Ondansetron IVP 8 mg IVP once; over 2 minutes Route: IVP; Site: right antecubital;vc1 08:46 Follow up: Response: No adverse reaction; Nausea is decreased ll1 07:08 Drug: NS 0.9% IV 1000 ml IV at 1 bolus Per protocol; to be given as a bolus over 60 vc1 minutes Route: IV; Rate: 1 bolus; Site: right antecubital; 08:46 Follow up: Response: No adverse reaction; IV Status: Completed infusion; IV Intake: ll1 1000ml 07:09 Drug: morphine IVP or IV 4 mg IVP once over 4 mins Route: IVP; Infused Over: 4 mins; vc1 Site: right antecubital; 08:46 Follow up: Response: No adverse reaction; Pain is decreased; RASS: Alert and Calm (0) ll1 Disposition Summary: 01/21/24 09:12 Discharge Ordered Notes: Location: Home rt Problem: new rt Symptoms: have improved rt Condition: Stable rt Diagnosis - Low back pain rt Followup: rt - With: Private Physician - When: 2 - 3 days - Reason: Discharge Instructions: - Discharge Summary Sheet rt - Acute Back Pain, Adult rt Forms: - Medication Reconciliation Form rt - Antibiotic Education rt - Prescription Opioid Use rt - Patient Portal Instructions rt - Leadership Thank You Letter rt Prescriptions: - Cyclobenzaprine 10 mg Oral tablet - take 1 tablet ORAL route every 8 hours As needed; 15 tablet; Refills: 0, rt Product Selection Permitted Signatures: Dispatcher [employer] EDCindy Cabral Vanessa RN RN vc1 Bam Smart MD MD rt Roberto Gonzalez MD MD sp4 Jonas Hodge RN ll1
--- NOTE | 2024-01-21 09:12 | ER ---
Nurse's Notes [facility] Name: Watson Mart[facility] Age: 58 yrs Sex: Male : 1965 Arrival Date: 01/21/2024 Time: 06:40 Bed 14 Private MD: Diagnosis: Low back pain Presentation: 01/20 06:52 Chief complaint: Patient states: Bilateral lower back pain. Coronavirus screen: Client vc1 denies travel out of the [place] in the last 14 days. At this time, the client does not indicate any symptoms associated with coronavirus-19. Ebola Screen: Patient negative for fever greater than or equal to 101.5 degrees Fahrenheit, and additional compatible Ebola Virus Disease symptoms Patient denies exposure to infectious person. Patient denies travel to an Ebola-affected area in the 21 days before illness onset. No symptoms or risks identified at this time. Initial Sepsis Screen: Does the patient meet any 2 criteria? No. Patient's initial sepsis screen is negative. Does the patient have a suspected source of infection? No. Patient's initial sepsis screen is negative. Risk Assessment: Do you want to hurt yourself or someone else? Patient reports no desire to harm self or others. Onset of symptoms was January 21, 2024 at 06:00. 06:52 Method Of Arrival: Ambulatory vc1 06:52 Acuity: VALERIA 3 vc1 Triage Assessment: 09:21 General: Appears in no apparent distress. General: Appears in no apparent distress. ll1 Behavior is calm, cooperative, appropriate for age. Pain: Denies pain. GI: No deficits noted. Historical: - Allergies: 06:54 PENICILLINS; vc1 - PMHx: 06:54 Hyperlipidemia; Hypertensive disorder; vc1 - PSHx: 06:54 Appendectomy; Elbow; vc1 - Immunization history:: Client reports receiving the 2nd dose of the Covid vaccine. - Infectious Disease History:: Denies. - Social history:: Smoking status: Patient denies any tobacco usage or history of. - Family history:: not pertinent. Screenin:55 [facility] ED Fall Risk Assessment (Adult) History of falling in the last 3 months, vc1 including since admission No falls in past 3 months (0 pts) Confusion or Disorientation No (0 pts) Intoxicated or Sedated No (0 pts) Impaired Gait No (0 pts) Mobility Assist Device Used No (0 pt) Altered Elimination No (0 pt) Score/Fall Risk Level 0 - 2 = Low Risk Oriented to surroundings, Maintained a safe environment, Educated pt \T\ family on fall prevention, incl call for assistance when getting out of bed. Abuse screen: Denies threats or abuse. Nutritional screening: No deficits noted. Tuberculosis screening: No symptoms or risk factors identified. Assessment: 07:26 Reassessment: No changes from previously documented assessment. Patient and/or family ll1 updated on plan of care and expected duration. Pain level reassessed. Patient is alert, oriented x 3, equal unlabored respirations, skin warm/dry/pink. 08:45 Reassessment: No changes from previously documented assessment. Patient and/or family ll1 updated on plan of care and expected duration. Pain level reassessed. Patient is alert, oriented x 3, equal unlabored respirations, skin warm/dry/pink. gait steady to rrestroom Patient states feeling better. 09:22 Reassessment: No changes from previously documented assessment. Patient and/or family ll1 updated on plan of care and expected duration. Pain level reassessed. Patient is alert, oriented x 3, equal unlabored respirations, skin warm/dry/pink. Patient states feeling better. Patient states symptoms have improved. 09:22 Pain: Denies pain. GI: Bowel sounds present X 4 quads. Abd is soft and non tender X 4 ll1 quads. Vital Signs: 06:52 BP 139 / 94; Pulse 66; Resp 17; Temp 98.2; Pulse Ox 99% ; Weight 86.18 kg; Height 5 ft. vc1 6 in. ; Pain 9/10; 07:25 BP 155 / 86; Pulse 68; Resp 17; Pulse Ox 100% on R/A; ll1 09:11 BP 139 / 93; Pulse 57; Resp 16; Pulse Ox 99% ; ll1 06:52 Body Mass Index 30.67 (86.18 kg, 167.64 cm) vc1 06:52 Pain Scale: Adult vc1 ED Course: 06:44 Patient arrived in ED. gm2 06:54 Triage completed. vc1 06:57 Bam Smart MD is Attending Physician. rt 06:57 Philly Ashley RN is Primary Nurse. kd3 07:01 Inserted saline lock: 20 gauge in right antecubital area, using aseptic technique. oe Blood collected. Flushed with 10 mL NS. 07:01 CBC with Diff Sent. oe 07:01 CRP Sent. oe 07:02 Troponin High Sensitivity Sent. oe 07:02 CMP Sent. oe 07:02 Lipase Sent. oe 07:27 Patient has correct armband on for positive identification. Bed in low position. ll1 Provided Education on: ER procedures and process. Client placed on continuous cardiac and pulse oximetry monitoring. NIBP monitoring applied. 08:13 CT Abd/Pelvis - IV Contrast Only In Process Unspecified. EDMS 08:52 Urinalysis w/ reflexes Sent. bp 09:21 No provider procedures requiring assistance completed. IV discontinued, intact, ll1 bleeding controlled, No redness/swelling at site. Pressure dressing applied. 09:22 Patient n/a. ll1 Administered Medications: 07:08 Drug: Famotidine IVP 20 mg IVP once; dilute with 10 mL 0.9% NaCl; give over 2 minutes vc1 Route: IVP; Site: right antecubital; 08:46 Follow up: Response: No adverse reaction ll1 07:08 Drug: TORadol - Ketorolac IVP 30 mg IVP once Route: IVP; Site: right antecubital; vc1 08:46 Follow up: Response: No adverse reaction; Pain is decreased ll1 07:08 Drug: Ondansetron IVP 8 mg IVP once; over 2 minutes Route: IVP; Site: right antecubital;vc1 08:46 Follow up: Response: No adverse reaction; Nausea is decreased ll1 07:08 Drug: NS 0.9% IV 1000 ml IV at 1 bolus Per protocol; to be given as a bolus over 60 vc1 minutes Route: IV; Rate: 1 bolus; Site: right antecubital; 08:46 Follow up: Response: No adverse reaction; IV Status: Completed infusion; IV Intake: ll1 1000ml 07:09 Drug: morphine IVP or IV 4 mg IVP once over 4 mins Route: IVP; Infused Over: 4 mins; vc1 Site: right antecubital; 08:46 Follow up: Response: No adverse reaction; Pain is decreased; RASS: Alert and Calm (0) ll1 Medication: 09:22 VIS not applicable for this client. ll1 Intake: 08:46 IV: 1000ml; Total: 1000ml. ll1 Outcome: 09:12 Discharge ordered by . rt 09:22 Patient left the ED. ll1 09:22 Discharged to home ambulatory, ll1 09:22 Condition: stable :22 Discharge instructions given to patient, Instructed on discharge instructions, follow up and referral plans. medication usage, Demonstrated understanding of instructions, follow-up care, medications, Prescriptions given X 1, Signatures: Dispatcher [employer] EDMS Steven Sow Brian RN RN bp Jonas Hodge RN RN ll1 Philly Ashley RN RN kd3 Marta Escobedo RN RN vc1 Bam mSart MD MD rt Madai Silver 2
[2024-01-21 10:50] VITALS: TEMP 98.2
[2024-01-21 10:52] VITALS: BP 139/93; O2SAT 99
== END 2024-01-21 09:22 | disposition home or self-care (01) ==
LOC: ER 06:40
DX: M54.50 Low back pain, unspecified (principal); I10 Essential (primary) hypertension; E78.5 Hyperlipidemia, unspecified
CPT/HCPCS: 96361; 85025; 36415; 81003; 84484; 83690; 80053; 86140; 74177; 96375; 96374; 99284; Q9967; J2405; J7030